=== PATIENT | male | born 1980 | race Caucasian/White ===

== ENCOUNTER 2016-06-07 13:58 | Emergency (ER) | payer OTHER ==
[~2016-06-07] VITALS: Ht 185.4 cm; Wt 104.5 kg
[~2016-06-07 13:58] MED LIST: ADVIL200 MG PO; BACTRIM DS 8001 TAB PO; CELEXA 20MG20 MG/TAB PO; CEPHALEXIN500 M1 PO; CHERATUSSIN AC120 ML PO; CLEOCIN HCL300 MG PO; DEMEROL 50M50 MG/TAB PO; LISINOPRIL10 MG PO; MOTRIN 800800 MG/TAB PO; NAPROSYN500 MG PO; NO HOME MEDICATIONS; NORCO 325 MG-51 TAB PO; NORCO 325 MG-7.1 TAB PO; OPANA10 MG PO; PERCOCET 325 MG1 TA2 PO; PRINIVIL5 MG PO; PROMETHAZINE12.5 M5 PO; SEPTRA DS 8001 TAB PO; ULTRAM 50MG TAB50 MG PO; XANAX0.5 MG PO; ZESTRIL 10MG10 MG PO; ZITHROMAX Z PA250 MG PO; ZOFRAN 4MG T4 MG/TAB PO
[2016-06-07 15:14] LABS: PH 6 (5-8); SQUAMOUS EPITHELIAL None Seen /hpf; URINE APPEARANCE Clear; URINE BACTERIA None Seen /hpf; URINE BILIRUBIN Negative (NEGATIVE); URINE BLOOD 3+ (NEGATIVE); URINE COLOR Yellow; URINE GLUCOSE Negative (NEGATIVE); URINE KETONE Negative (NEGATIVE); URINE RBC >50 /hpf; URINE UROBILINOGEN Negative (NEGATIVE); URINE WBC 0-2 /hpf
[2016-06-07] MEDS ORDERED: DOXYCYCLINE HY100 MG PO (15:31)
[2016-06-07] MEDS ORDERED: NORCO 325 MG-51 TAB PO (15:31)
[2016-06-07 15:54] VITALS: BP 126/78; PULSE 91; TEMP 97.7
[2016-06-07 16:52] LABS: CHLAMYDIA/TRACH by PCR Male Not Detected; Neisseria Gon by PCR Male Not Detected
== END 2016-06-07 15:55 | disposition home or self-care (01) ==
LOC: COL.ER 13:58
PROVIDERS: Emergency Medicine
DX: N10 Acute pyelonephritis (principal); R31.9 Hematuria, unspecified; N50.812 Left testicular pain
CPT/HCPCS: J0696

== ENCOUNTER 2016-07-05 12:35 | Emergency (ER) | payer OTHER ==
[~2016-07-05] VITALS: Ht 185.4 cm; Wt 100.0 kg
[~2016-07-05 12:35] MED LIST changes: +DOXYCYCLINE HY100 MG PO
[2016-07-05 12:38] VITALS: BP 130/73; TEMP 97.8
[2016-07-05 13:29] LABS: BASO # 0.1 (0.0-0.2); BASO % 0.4 % (0.0-2.0); EOS # 0.1 (0.0-0.7); EOS % 0.5 % (0-4.0); GRAN # 9.1 (1.4-6.5); GRAN % 78.6 % (42.2-75.2); HEMATOCRIT 46.3 % (42.0-52.0); HEMOGLOBIN 16.2 g/dl (13.5-18.0); LYMPH # 1.4 (1.2-3.4); LYMPH % 12.3 % (20.0-51.0); MEAN CELL VOLUME 80 fl (80.0-100.0); MEAN CORPUSCULAR HEMOGLOBIN 28 pg (27.0-31.0); MEAN CORPUSCULAR HGB CONC 35 g/dl (33.0-37.0); MEAN PLATELET VOLUME 10.5 fl (7.4-10.4); MONO # 0.8 (0.1-0.6); MONO % 7.2 % (1.7-9.3); PLATELET COUNT 255 K/mm3 (130-400); REDCELL DISTRIBUTION WIDTH-CV 13.1 % (11.5-14.5); WHITE BLOOD COUNT 11.6 K/mm3 (4.8-10.8)
[2016-07-05 13:38] LABS: ADJUSTED CALCIUM 9.7 mg/dL (8.4-10.2); ALBUMIN 3.6 gm/dL (3.5-5.0); BILIRUBIN,TOTAL 0.7 mg/dL (0.0-1.0); CALCIUM 9.4 mg/dL (8.4-10.2); CREATININE, serum 0.91 mg/dL (0.66-1.25); POTASSIUM 4.2 mmol/L (3.4-5.0); TOTAL PROTEIN 6.9 gm/dL (6.4-8.2)
[2016-07-05 13:45] LABS: PH 5 (5-8); SQUAMOUS EPITHELIAL 0-2 /hpf; URINE APPEARANCE Clear; URINE BACTERIA None Seen /hpf; URINE BILIRUBIN Negative (NEGATIVE); URINE BLOOD 2+ (NEGATIVE); URINE COLOR Yellow; URINE GLUCOSE Negative (NEGATIVE); URINE KETONE Negative (NEGATIVE); URINE UROBILINOGEN Negative (NEGATIVE)
[2016-07-05] MEDS ORDERED: ULTRAM 50MG TAB50 MG PO (14:35)
[2016-07-05 15:03] VITALS: PULSE 76
== END 2016-07-05 15:00 | disposition home or self-care (01) ==
LOC: COL.ER 12:35
PROVIDERS: Family Medicine
DX: R10.11 Right upper quadrant pain (principal); M54.89 Other dorsalgia
CPT/HCPCS: J1885; J2405; J7030

== ENCOUNTER 2016-10-09 17:51 | Emergency (ER) | payer OTHER ==
[~2016-10-09] VITALS: Ht 185.4 cm; Wt 100.0 kg
[2016-10-09 17:54] VITALS: BP 143/91; PULSE 95; TEMP 98.9
== END 2016-10-09 19:00 | disposition home or self-care (01) ==
LOC: COL.ER 17:51
DX: S61.411A Laceration without foreign body of right hand, initial encounter (principal); W22.8XXA Striking against or struck by other objects, initial encounter; W25.XXXA Contact with sharp glass, initial encounter

== ENCOUNTER 2017-11-02 21:14 | Emergency (ER) | payer SELFPAY ==
[~2017-11-02] VITALS: Ht 185.4 cm; Wt 105.0 kg
[2017-11-02 21:19] VITALS: BP 139/94; TEMP 98
[2017-11-03] MEDS ORDERED: FLEXERIL 1010 MG/TAB PO (00:03)
[2017-11-03 00:30] VITALS: PULSE 93
== END 2017-11-03 00:30 | disposition home or self-care (01) ==
LOC: COL.ER 21:14
DX: S39.012A Strain of muscle, fascia and tendon of lower back, initial encounter (principal); M54.32 Sciatica, left side; Z90.89 Acquired absence of other organs; Z98.52 Vasectomy status; W17.1XXA Fall into storm drain or manhole, initial encounter
CPT/HCPCS: J1885

== ENCOUNTER 2017-11-04 10:04 | Emergency (ER) | payer SELFPAY ==
[~2017-11-04] VITALS: Ht 185.4 cm; Wt 104.5 kg
[~2017-11-04 10:04] MED LIST changes: +FLEXERIL 1010 MG/TAB PO
[2017-11-04 10:08] VITALS: BP 138/89; PULSE 85; TEMP 97.7
== END 2017-11-04 10:46 | disposition home or self-care (01) ==
LOC: COL.ER 10:04
DX: M54.42 Lumbago with sciatica, left side (principal); X50.1XXA Overexertion from prolonged static or awkward postures, initial encounter; Z87.891 Personal history of nicotine dependence
CPT/HCPCS: J1885

== ENCOUNTER → 2017-11-17 | Outpatient (CLI) | payer SELFPAY | LOC: COL.RAD 07:05 | DX: M51.37 Other intervertebral disc degeneration, lumbosacral region (principal); M51.34 Other intervertebral disc degeneration, thoracic region ==

== ENCOUNTER 2018-07-09 09:57 | Emergency (ER) | payer BC ==
[~2018-07-09] VITALS: Ht 185.4 cm; Wt 104.5 kg
[2018-07-09 10:02] VITALS: BP 158/87; TEMP 98.3
[2018-07-09 10:23] LABS: COLLECTION METHOD CLEAN CATCH
[2018-07-09 10:48] LABS: BUDDING YEAST Present /hpf; MUCOUS Present /lpf; PH 5 (5-8); SQUAMOUS EPITHELIAL None Seen /hpf; URINE APPEARANCE Hazy; URINE BACTERIA None Seen /hpf; URINE BILIRUBIN Negative (NEGATIVE); URINE BLOOD 2+ (NEGATIVE); URINE COLOR Yellow; URINE GLUCOSE Negative (NEGATIVE); URINE KETONE Negative (NEGATIVE); URINE LEUKOCYTE ESTERASE Negative (NEGATIVE); URINE NITRATE Negative (NEGATIVE); URINE PROTEIN(semi-quant) 3+ (NEGATIVE); URINE RBC 20-50 /hpf; URINE UROBILINOGEN Negative (NEGATIVE)
[2018-07-09] MEDS ORDERED: NORCO 325 MG-51 TAB PO (12:55)
[2018-07-09] MEDS ORDERED: CIPRO 500MG TA500 MG PO (12:55)
[2018-07-09 13:22] VITALS: PULSE 97
== END 2018-07-09 13:22 | disposition home or self-care (01) ==
LOC: COL.ER 09:57
PROVIDERS: Emergency Medicine
DX: N45.1 Epididymitis (principal)
CPT/HCPCS: J1885

== ENCOUNTER 2019-01-21 16:09 | Emergency (ER) | payer BC ==
[~2019-01-21] VITALS: Ht 185.4 cm; Wt 103.2 kg
[~2019-01-21 16:09] MED LIST changes: +CIPRO 500MG TA500 MG PO
[2019-01-21 16:14] VITALS: BP 137/90; TEMP 98
[2019-01-21] MEDS ORDERED: ROBITUSSIN DM 105 ML PO (16:28)
[2019-01-21] MEDS ORDERED: DOXYCYCLINE 10100 MG PO (17:24)
[2019-01-21 17:37] VITALS: PULSE 106
== END 2019-01-21 17:37 | disposition home or self-care (01) ==
LOC: COL.ER 16:09
DX: J18.1 Lobar pneumonia, unspecified organism (principal); J98.01 Acute bronchospasm; F17.210 Nicotine dependence, cigarettes, uncomplicated

== ENCOUNTER 2019-02-17 17:07 | Emergency (ER) | payer SELFPAY ==
[~2019-02-17] VITALS: Ht 185.4 cm; Wt 100.0 kg
[~2019-02-17 17:07] MED LIST changes: +DOXYCYCLINE 10100 MG PO; +ROBITUSSIN DM 105 ML PO
[2019-02-17 17:21] VITALS: TEMP 98.7
[2019-02-17 18:28] LABS: COLLECTION METHOD CLEAN CATCH
[2019-02-17 18:44] LABS: MUCOUS Present /lpf; PH 5 (5-8); SQUAMOUS EPITHELIAL 0-2 /hpf; URINE APPEARANCE Hazy; URINE BACTERIA None Seen /hpf; URINE BILIRUBIN Negative (NEGATIVE); URINE BLOOD 3+ (NEGATIVE); URINE COLOR Yellow; URINE GLUCOSE Negative (NEGATIVE); URINE KETONE Negative (NEGATIVE); URINE LEUKOCYTE ESTERASE Negative (NEGATIVE); URINE NITRATE Negative (NEGATIVE); URINE PROTEIN(semi-quant) 3+ (NEGATIVE); URINE RBC >50 /hpf; URINE UROBILINOGEN Negative (NEGATIVE)
[2019-02-17] MEDS ORDERED: NORCO 325 MG-51 TAB PO (19:14)
[2019-02-17] MEDS ORDERED: CIPRO 500MG TA500 MG PO (19:14)
[2019-02-17 19:41] VITALS: BP 130/99; PULSE 80
== END 2019-02-17 19:39 | disposition home or self-care (01) ==
LOC: COL.ER 17:07
PROVIDERS: Emergency Medicine
DX: N50.812 Left testicular pain (principal); Z88.0 Allergy status to penicillin

== ENCOUNTER 2020-02-18 11:14 | Emergency (ER) | payer SELFPAY ==
[~2020-02-18] VITALS: Ht 185.4 cm; Wt 104.5 kg
[2020-02-18 11:43] VITALS: BP 134/90; PULSE 76; TEMP 98
== END 2020-02-18 13:27 | disposition home or self-care (01) ==
LOC: COL.ER 11:14
DX: T23.231A Burn of second degree of multiple right fingers (nail), not including thumb, initial encounter (principal); T31.0 Burns involving less than 10% of body surface; Z88.0 Allergy status to penicillin; X10.2XXA Contact with fats and cooking oils, initial encounter; Y92.009 Unspecified place in unspecified non-institutional (private) residence as the place of occurrence of the external cause

== ENCOUNTER 2023-02-07 12:36 | Outpatient (RCR) | payer OTHER ==
[~2023-02-07 12:36] MED LIST changes: +GLUCOSE TEST ST1 DEV MC; +LANCETS MC
== END 2023-02-26 | disposition home or self-care (01) ==
LOC: WSPT
DX: M54.2 Cervicalgia (principal)

== ENCOUNTER 2023-03-15 09:13 | Emergency (ER) | payer SELFPAY ==
[~2023-03-15] VITALS: Ht 185.4 cm; Wt 100.0 kg
[2023-03-15 09:17] VITALS: TEMP 97.6
[2023-03-15 10:31] LABS: BASO # 0.1 K/mm3 (0.0-0.2); BASO % 0.6 % (0.0-2.0); EOS # 0.4 K/mm3 (0.0-0.7); EOS % 5.4 % (0.0-4.0); GRAN # 5.2 K/mm3 (1.4-6.5); GRAN % 65.2 % (42.2-75.2); HEMOGLOBIN 17.2 g/dl (13.5-18.0); LYMPH # 1.6 K/mm3 (1.2-3.4); LYMPH % 20.4 % (20.0-51.0); MEAN CELL VOLUME 83 fl (80.0-100.0); MEAN CORPUSCULAR HEMOGLOBIN 28 pg (27-31); MEAN CORPUSCULAR HGB CONC 34 g/dl (33.0-37.0); MEAN PLATELET VOLUME 10.5 fl (7.4-10.4); MONO # 0.6 K/mm3 (0.1-0.6); MONO % 8.1 % (1.7-9.3); PLATELET COUNT 210 K/mm3 (130-400); RED BLOOD COUNT 6.06 M/mm3 (4.20-5.60)
[2023-03-15 10:36] LABS: ALBUMIN 3.2 gm/dL (3.5-5.0); BILIRUBIN,TOTAL 0.5 mg/dL (0.2-1.2); CALCIUM 9.2 mg/dL (8.4-10.2); CREATININE, serum 1.13 mg/dL (0.72-1.25); POTASSIUM 4.7 mmol/L (3.5-4.5); TOTAL PROTEIN 6.5 gm/dL (6.2-8.1)
[2023-03-15] MEDS ORDERED: MEDROL 4MG DOSPA4 MG PO (11:41)
[2023-03-15 11:54] VITALS: BP 149/88; PULSE 65
== END 2023-03-15 11:55 | disposition home or self-care (01) ==
LOC: COL.ER 09:13
PROVIDERS: Family Medicine
DX: M50.30 Other cervical disc degeneration, unspecified cervical region (principal); M48.02 Spinal stenosis, cervical region; Z87.891 Personal history of nicotine dependence
CPT/HCPCS: J1885; J2360; J2930